=== PATIENT | female | born 1995 | race Caucasian/White ===

== ENCOUNTER 2018-01-01 09:57 | Emergency (ER) | payer SELFPAY ==
[~2018-01-01] VITALS: Ht 162.6 cm; Wt 80.0 kg
[2018-01-01 10:15] VITALS: BP 115/55; PULSE 95; RESP 16; TEMP 98.2; O2SAT 99
[2018-01-01] MEDS ORDERED: SULFAMETHOXAZOLE-TRIMETHOPRIM DS 800-160 MG TAB PO ONE (10:45)
[2018-01-01] MEDS ORDERED: IBUPROFEN 800 MG TAB PO ONE (10:45)
[2018-01-01] MEDS ORDERED: BACT800T5 PO (10:51)
[2018-01-01] MEDS ORDERED: PERM5CRE TOPICAL (10:56)
--- NOTE | 2018-01-01 10:56 | PD ---
HPI Chief Complaint: Skin Problem Time Seen by Provider: 10:35 Travel History International Travel<30 days: No Contact w/Intl Traveler<30days: No Traveled to known affect area: No History of Present Illness HPI 22-year-old female presents to the emergency room for evaluation of an abscess to her back that started a few days ago. Patient states it began to drain on its own today. She reports significant pain. She took ibuprofen last night without any relief in symptoms. Pain is worsened when she has applies pressure. She denies objective fevers but reports chills and night sweats. She denies any chronic medical conditions or daily medications. PFSH Past Medical History ?: Not LMP: UNKNOWN Social History Tobacco Use: No Allergies-Medications (Allergen,Severity, Reaction): Coded Allergies: No Known Allergies (Unverified , 01/01/18) Reported Meds & Prescriptions Reported Meds & Active Scripts Active Bactrim DS (Sulfamethoxazole-Trimethoprim) 800-160 Mg Tab 1 Tab PO BID Review of Systems Except as stated in HPI: all other systems reviewed are Neg Physical Exam Narrative GENERAL: Well-nourished, well-developed female in no acute distress. Afebrile. Ambulatory SKIN: Focused skin assessment warm/dry. There is an indurated area in the upper back which measures about4 cm in diameter. It is fluctuant with significant purulent drainage. There is a zone of inflammation around it but no lymphangitis. Patient also has several excoriated maculopapular lesions throughout the body especially on the abdomen and bilateral upper extremities. HEAD: Normocephalic. EYES: No scleral icterus. No injection or drainage. NECK: Supple, trachea midline. No JVD or lymphadenopathy. CARDIOVASCULAR: Regular rate and rhythm without murmurs, gallops, or rubs. RESPIRATORY: Breath sounds equal bilaterally. No accessory muscle use. PSYCHIATRIC: No delusional thought processes. No hallucinations. Data Data Last Documented VS Vital Signs Date Time Temp Pulse Resp B/P (MAP) Pulse Ox O2 Delivery O2 Flow Rate FiO2 01/01/18 10:15 98.2 95 16 115/55 (75) 99 Orders Orders Ibuprofen (Motrin) (01/01/18 10:45) Sulfamet-Trimeth Ds 800-160 Mg (Bactrim (01/01/18 10:45) MDM Medical Decision Making Medical Screen Exam Complete: Yes Emergency Medical Condition: Yes Medical Record Reviewed: Yes Differential Diagnosis Abscess, cellulitis, folliculitis, scabies Narrative Course 22-year-old female presents to the emergency room for evaluation of abscess to her back that started a few days ago. Patient denies any objective fevers. She is afebrile and well-appearing in the emergency room. Physical exam reveals an indurated area in the upper back which measures about4 cm in diameter. It is fluctuant with significant purulent drainage. There is a zone of inflammation around it but no lymphangitis. Patient also has several excoriated maculopapular lesions throughout the body especially on the abdomen and bilateral upper extremities. Patient may have picking disorder or scabies. Patient was given ibuprofen and first dose of Bactrim in the emergency room. She will be discharged with prescription for Bactrim and told to follow-up with primary care physician or return for worsening symptoms. She understands and agrees to plan. Diagnosis Primary Impression: Abscess of back Additional Impression: Scabies Referrals: Primary Care Physician Additional Instructions: Rest and drink plenty of fluids. Take Bactrim as directed, until gone. Apply cream to entire body. Leave on for 8 hours. Then wash off. Repeat in 1 week. Follow up with a primary care physician. Return to emergency room for worsening symptoms, as discussed. Med/Other Pt SpecificInfo: Prescription(s) given Scripts Sulfamethoxazole-Trimethoprim (Bactrim DS) 800-160 Mg Tab 1 TAB PO BID for Infection, #20 TAB 0 Refills Prov: Sourav Brooks MD 01/01/18 Disposition: 01 DISCHARGE HOME Condition: Stable Perla Nj Jan 01, 2018 10:56
== END 2018-01-01 11:36 | disposition home or self-care (01) ==
LOC: NEPK 09:57
DX: L02.212 Cutaneous abscess of back [any part, except buttock and flank] (principal); B86 Scabies
CPT/HCPCS: 99283